=== PATIENT | female | born 1950 ===

== ENCOUNTER → 2018-06-18 | Outpatient (REF) | payer OTHER, MEDICARE ==
[2018-06-18 14:24] LABS: PLATELET COUNT, AUTOMATED 242 K/uL (150-450)
== END ==
PROVIDERS: ATTEND Family Medicine
DX: R06.02 Shortness of breath (principal)
CPT/HCPCS: 82040; 82247; 82310; 82374; 82435; 82565; 82947; 83880; 84075; 84132; 84155; 84295; 84450; 84460; 84484; 84520; 85025; 85379